=== PATIENT | female | born 1980 | race Caucasian/White ===

== ENCOUNTER 2016-07-26 13:07 | Emergency (ER) | payer OTHER ==
[~2016-07-26] VITALS: Ht 162.6 cm; Wt 59.0 kg
[~2016-07-26 13:07] MED LIST: IBUPROFEN800 MG PO
[2016-07-26 13:15] VITALS: BP 111/64
[2016-07-26] MEDS ORDERED: PANTOPRAZOLE SO40 M1 PO (14:13)
--- NOTE | 2016-07-26 14:19 | RADIOLOGY REPORT ---
EXAMINATION: RIGHT FOOT 3 VIEWS CLINICAL INFORMATION: Right foot pain after fall. Swelling. COMPARISON: None. TECHNIQUE: AP, lateral, oblique views of the right foot were obtained. FINDINGS: There are no fractures or dislocations. There is no significant soft tissue swelling. No ankle joint effusion is identified. IMPRESSION: Unremarkable right foot radiographs.
--- NOTE | 2016-07-26 14:31 | ED UPPER/LOWER EXTREMITY COMPL ---
History of Present Illness General Chief Complaint: Foot or Ankle Injury Stated Complaint: PT SLIP ON ICE AND HURT HER RIGHT FOOT Source: patient Exam Limitations: no limitations Vital Signs & Intake/Output Vital Signs & Intake/Output Vital Signs Date Time Temp Pulse Resp B/P Pulse O2 O2 Flow FiO2 Ox Delivery Rate 07/26 1409 Room Air 07/26 1315 98.6 82 16 111/64 100 Room Air Allergies Coded Allergies: NO KNOWN ALLERGIES (12/22/12) Reconcile Medications Ibuprofen 800 MG TABLET 800 MG PO Q6P PRN PAIN SCALE 4-6 Pantoprazole Sodium 40 MG TABLET.DR 1 TAB PO DAILY GERD (Reported) Triage Note: PT TO ED FOR R FOOT PAIN AFTER SLIPPING IN THE SNOW THIS AM, SMALL AMOUNT OF BRUISING NOTED TO LATERAL ASPECT OF R FOOT, NO DEFORMITY, +PULSES, SENSATION AND MOVEMENT. DID NOT HIT HEAD. Triage Nurses Notes Reviewed? yes : No Patient currently breastfeeds: No HPI: Right foot pain after inversion injury when slipping on the ice prior to arrival. Mild swelling, increased pain with palpation. Aching. No previous injuries. No treatment thus far. She is limping mildly (JULISA REES) Past History Travel History Traveled to [place] past 21 day No Medical History Any Pertinent Medical History? see below for history Neurological: NONE EENT: NONE Cardiovascular: NONE Respiratory: NONE Gastrointestinal: GERD Hepatic: NONE Renal: NONE Musculoskeletal: NONE Psychiatric: NONE Endocrine: NONE Blood Disorders: NONE Cancer(s): NONE Influenza Vaccine: 07/08/16 Surgical History Surgical History: non-contributory Psychosocial History What is your primary language Kinyarwanda Tobacco Use: Never used ETOH Use: occasional use Illicit Drug Use: denies illicit drug use Family History Hx Contributory? No (JULISA REES) Review of Systems Review of Systems Constitutional: Reports: see HPI. EENTM: Reports: no symptoms. Respiratory: Reports: no symptoms. Cardiovascular: Reports: no symptoms. Gastrointestinal/Abdominal: Reports: no symptoms. Genitourinary: Reports: no symptoms. Musculoskeletal: Reports: see HPI. Skin: Reports: no symptoms. Neurological/Psychological: Reports: no symptoms. Hematologic/Endocrine: Reports: no symptoms. Immunological: Reports: no symptoms. All Other Systems: Reviewed and Negative (JULISA REES) Physical Exam Physical Exam General Appearance: well developed/nourished Comments: Well-developed well-nourished no apparent distress. HEENT: Atraumatic, extraocular motion intact Neck: Supple, no lymphadenopathy Back: Nontender Respiratory: No respiratory distress Extremities: No edema, full range of motion Neuro: Alert and oriented x3 Psych: Mood affect normal, normal memory normal judgment. Skin: Warm and dry, no rash on exposed skin Right foot, mild swelling and trace ecchymosis to the proximal fourth metacarpal base region. No fifth metatarsal tenderness. Ankle exam is benign. Mild pain with inversion stress of the foot. No instability. No medial tenderness. (JULISA REES) Progress Differential Diagnosis: arterial insufficiency, cellulitis, CHF, compartment syndrome, contusion, dislocation, DVT, fracture, gout, septic arthritis, sprain, tendon injury Plan of Care: Orders Procedure Date/time Status URINE 07/26 1333 Complete Laboratory Tests 07/26/16 1340: Urine Test NEGATIVE Diagnostic Imaging: Viewed by Me: Radiology Read (right foot). Discussed w/RAD: Radiology Read ( right foot). Radiology Impression: no acute abnormality, no fracture, no dislocation, no foreign body seen Comments: Mild Right foot sprain, Zac wrap applied by myself, rest ice compression and elevation, orthopedic follow-up in one week when necessary (JULISA REES) Departure Departure Disposition: HOME OR SELF CARE Condition: Stable Clinical Impression Primary Impression: Sprain of foot, right Qualifiers: Encounter type: initial encounter Qualified Code: S93.601A - Unspecified sprain of right foot, initial encounter Referrals: UNKNOWN HARMONY PABLO MD Additional Instructions: Rest, ice, compression (zac wrap), elevation. Motrin and Tylenol as needed for pain. Gradual return to activity as tolerated. Follow-up with orthopedist in one to 2 weeks if no better. Departure Forms: Customer Survey General Discharge Information (JULISA REES) PA/RIB KNITTER Co-Sign Statement Statement: ED Attending supervision documentation- [] I saw and evaluated the patient. I have also reviewed all the pertinent lab results and diagnostic results. I agree with the findings and the plan of care as documented in the PA's/RIB KNITTER's documentation. x I have reviewed the ED Record and agree with the PA's/RIB KNITTER's documentation. [] Additions or exceptions (if any) to the PAs/RIB KNITTER's note and plan are summarized below: [] (HIPONA MD,SARAH)
== END 2016-07-26 14:35 ==
LOC: ERH 13:07
DX: S93.601A Unspecified sprain of right foot, initial encounter (principal); X50.9XXA Other and unspecified overexertion or strenuous movements or postures, initial encounter
CPT/HCPCS: 73630-RT; 81025

== ENCOUNTER 2017-07-06 06:36 | Inpatient (IN) | payer OTHER ==
[~2017-07-06] VITALS: Ht 165.1 cm; Wt 66.2 kg
[~2017-07-06 06:36] MED LIST changes: +PANTOPRAZOLE SO40 M1 PO
[2017-07-06 08:05] LABS: ABSOLUTE BASOPHIL COUNT 0 /CUMM (0.0-0.2); ABSOLUTE EOSINOPHIL COUNT 0 /CUMM (0.0-0.7); ABSOLUTE GRANULOCYTE CT 4.8 /CUMM (1.4-6.5); ABSOLUTE LYMPH COUNT 2.1 /CUMM (1.2-3.4); ABSOLUTE MONOCYTE COUNT 0.5 /CUMM (0.10-0.60); BASOPHIL % 0.4 % (0.0-2.0); EOSINOPHIL % 0.6 % (0-5); GRANULOCYTE % 64.8 % (42.2-75.2); HEMATOCRIT 31.4 % (37-47); MEAN CORPUSCULAR HGB 28.5 PG (27.0-31.0); MEAN CORPUSCULAR HGB CONC 33.3 G/DL (33.0-37.0); MEAN CORPUSCULAR VOLUME 85.8 FL (81.0-99.0); MEAN PLATELET VOLUME 10.8 FL (7.4-10.4); PLATELET COUNT 186 /CUMM (130-400); RBC DISTRIBUTION WIDTH 13.9 % (11.5-14.5); RED BLOOD CELL CT 3.65 /CUMM (4.20-5.40); WHITE BLOOD CELL COUNT 7.5 /CUMM (4.8-10.8)
[2017-07-06] MEDS ORDERED: PRENATAL TABLE1 EAC2 PO (08:14)
[2017-07-06] MEDS ORDERED: ASPIRIN EC81 M1 PO (08:15)
--- NOTE | 2017-07-06 11:50 | History & Physical Pre-Op ---
General Information and HPI History of Present Illness: 37-year-old 4 para 2 LMP 10/02/2016 EDC 07/09/2017 at 39 weeks and 4 days who presents with premature rupture of membranes. care is complete and unremarkable. Allergies/Medications Allergies: Coded Allergies: NO KNOWN ALLERGIES (12/22/12) Home Med list Aspirin (Ecotrin*) 81 MG TABLET.DR 1 TAB PO DAILY VARICOSE VEINS (Reported) Pantoprazole Sodium 40 MG TABLET.DR 1 TAB PO DAILY GERD (Reported) Vit No.130/Iron/FA ( Tablet) 27 MG IRON-800 MCG TABLET 1 TAB PO DAILY (Reported) Past History Medical History Neurological: NONE EENT: NONE Cardiovascular: NONE Respiratory: NONE Gastrointestinal: GERD Hepatic: NONE Renal: NONE Musculoskeletal: NONE Psychiatric: NONE Endocrine: NONE Blood Disorders: NONE Cancer(s): NONE Influenza Vaccine: 07/08/16 Surgical History Pertinent Surgical History: non-contributory Past Family/Social History Psychosocial History Smoking Status: Never Smoked Review of Systems Review of Systems Constitutional: Reports: no symptoms. EENTM: Reports: no symptoms. Cardiovascular: Reports: no symptoms. Respiratory: Reports: no symptoms. GI: Reports: no symptoms. Genitourinary: Reports: no symptoms. Musculoskeletal: Reports: no symptoms. Skin: Reports: no symptoms. Neurological/Psychological: Reports: no symptoms. Hematologic/Endocrine: Reports: no symptoms. Immunologic/Allergic: Reports: no symptoms. All Other Systems: Reviewed and Negative Exam & Diagnostic Data Last 24 Hrs of Vital Signs/I&O Intake & Output 07/06 1600 07/06 0800 07/06 0000 Intake Total Output Total Balance Patient 146 lb Weight Physical Exam: HEENT: NCAT Chest: CTA CV: nl S1S2 Abd: gravid, cepalic EFW 7-10 Ext: no c/c/e Assessment/Plan Assessment/Plan: PROM at 39 weeks neg GBS expectant mgmt As Ranked By This Provider Problem List: 1.
--- NOTE | 2017-07-06 11:52 | Labor & Delivery Summary ---
Delivery Summary Vaginal Delivery: Vaginal: spontaneous Episiotomy/Lacerations: Episiotomy/Lacerations: lac Type: r vag Repair: int x 1 Anesthesia: epidural Placenta: Placenta: spontanteous, abnormal Baby's Weight: 7-9 Apgars - 1 Min: 9 Apgars - 5 Min: 9
[2017-07-07 07:55] LABS: ABSOLUTE BASOPHIL COUNT 0 /CUMM (0.0-0.2); ABSOLUTE EOSINOPHIL COUNT 0.1 /CUMM (0.0-0.7); ABSOLUTE GRANULOCYTE CT 6.1 /CUMM (1.4-6.5); ABSOLUTE MONOCYTE COUNT 0.5 /CUMM (0.10-0.60); BASOPHIL % 0.4 % (0.0-2.0); GRANULOCYTE % 69.4 % (42.2-75.2); HEMATOCRIT 29.2 % (37-47); MEAN CORPUSCULAR HGB 28.5 PG (27.0-31.0); MEAN CORPUSCULAR HGB CONC 33.4 G/DL (33.0-37.0); MEAN CORPUSCULAR VOLUME 85.4 FL (81.0-99.0); MEAN PLATELET VOLUME 10.5 FL (7.4-10.4); PLATELET COUNT 162 /CUMM (130-400); RBC DISTRIBUTION WIDTH 13.9 % (11.5-14.5); RED BLOOD CELL CT 3.42 /CUMM (4.20-5.40); WHITE BLOOD CELL COUNT 8.7 /CUMM (4.8-10.8)
[2017-07-08] MEDS ORDERED: IBUPROFEN800 M1 PO (10:00)
[2017-07-08] MEDS ORDERED: DOCUSATE SODIU100 M3 PO (10:00)
== END 2017-07-08 11:20 | DRG 775 ==
LOC: CBCO 06:36 → GNO 06:49
PROVIDERS: Obstetrics & Gynecology
PROC: 10E0XZZ Delivery of Products of Conception, External Approach (ICD-10-PCS; principal; 2017-07-06)
PROC: 0KQM0ZZ Repair Perineum Muscle, Open Approach (ICD-10-PCS; 2017-07-06)
DX: O71.4 Obstetric high vaginal laceration alone (principal); Z37.0 Single live birth; K21.9 Gastro-esophageal reflux disease without esophagitis; Z3A.39 39 weeks gestation of pregnancy
CPT/HCPCS: GNOS; 36415; 81003; J7120